=== PATIENT | female | born 1990 | race Caucasian/White ===

== ENCOUNTER 2022-05-01 15:35 | Inpatient (IN) | payer MEDICAID ==
[~2022-05-01] VITALS: Ht 177.8 cm; Wt 68.9 kg
[2022-05-01] MEDS ORDERED: MORPHINE SULFATE 4 MG/ML CPJ (NOT FOR IM USE) IV ONE ×2 (16:45→19:30)
[2022-05-01] MEDS ORDERED: ONDANSETRON HCL 4MG/2ML INJ IV ONE (16:45)
[2022-05-01 16:53] LABS: BASOPHILS % 0.2 % (0.0-2.0); EOSINOPHILS % 0.3 % (0.0-5.0); HEMATOCRIT. 36.9 % (36.0-48.0); HEMOGLOBIN. 12.8 g/dL (12.0-16.0); LYMPHOCYTES % 13.8 % (20.0-50.0); MEAN CORPUSCULAR HEMOGLOBIN 28.8 pg (28.0-32.0); MEAN CORPUSCULAR VOLUME 83.3 fL (81.0-99.0); MEAN PLATELET VOLUME 7.1 fl (7.4-10.4); MONOCYTES % 5.3 % (2.0-8.0); NEUTROPHILS % 80.4 % (40.0-76.0); PLATELET 379 x1000/uL (130-400); RED BLOOD CELL COUNT 4.43 mill/uL (4.2-5.4)
[2022-05-01 16:59] LABS: CHLORIDE 103 mEq/L (98-107); PROTHROMBIN TIME 11.1 sec (9.6-11.0)
[2022-05-01 17:04] LABS: CLARITY URINE CLOUDY (CLEAR); COLOR URINE YELLOW (YELLOW); KETONES URINE 1+ (NEGATIVE); LEUKOCYTE ESTERASE URINE TRACE (NEGATIVE); NITRITE URINE NEGATIVE (NEGATIVE); OCCULT BLOOD URINE NEGATIVE (NEGATIVE); PH URINE >=9.0 (4.5-8.0); PROTEIN URINE TRACE (NEGATIVE); UROBILINOGEN URINE 0.2 E.U./dL (0.2-1.0)
[2022-05-01 17:11] LABS: UCG SCREEN NEGATIVE
[2022-05-01] MEDS ORDERED: CEFUROXIME SODIUM 750 MG in DEXTROSE 5% WATER 50 ML IV SCH (18:45)
[2022-05-01] MEDS ORDERED: CEFOXITIN 1G in DEXTROSE 5% WATER 50ML IV NR (19:00)
[2022-05-01 20:00] VITALS: BP 116/69
[2022-05-01 23:17] VITALS: BP 116/69
[2022-05-02] MEDS ORDERED: PROPOFOL 200MG/20ML VIAL IV ONE (00:01)
[2022-05-02] MEDS ORDERED: ONDANSETRON HCL 4MG/2ML INJ ONE ×2 (00:11→00:40)
[2022-05-02] MEDS ORDERED: HYDROCODONE/ACETAMINOPHEN 5/325MG TABLET PO PRN ×2 (00:15)
[2022-05-02] MEDS ORDERED: MORPHINE SULFATE 2 MG/ML CPJ (NOT FOR IM USE) IV PRN ×2 (00:15→01:15)
[2022-05-02] MEDS ORDERED: MORPHINE SULFATE 4 MG/ML CPJ (NOT FOR IM USE) IV PRN (00:15)
[2022-05-02] MEDS ORDERED: ONDANSETRON HCL 4MG/2ML INJ IV PRN ×3 (00:15→01:15)
[2022-05-02] MEDS ORDERED: SKIN ADHESIVE 0.7 GM EA TOP ONE ×2 (00:17→01:02)
[2022-05-02] MEDS ORDERED: BUPIVACAINE HCL 0.5% (5MG/ML) 50ML ONE (00:17)
[2022-05-02] MEDS ORDERED: MIDAZOLAM HCL 2 MG/2 ML VIAL ONE (00:17)
[2022-05-02] MEDS ORDERED: NALOXONE HCL 0.4MG/ML VIAL IV PRN (00:30)
[2022-05-02] MEDS ORDERED: SUCCINYLCHOLINE CHLORIDE 200MG/10ML IV ONE (00:40)
[2022-05-02] MEDS ORDERED: FENTANYL CITRATE/PF 50MCG/ML 2ML VIAL ONE (00:40)
[2022-05-02] MEDS ORDERED: DEXAMETHASONE 4MG/ML 1ML VIAL ONE (00:40)
[2022-05-02] MEDS ORDERED: GLYCOPYRROLATE 0.2 MG/ML 2ML VIAL ONE (00:41)
[2022-05-02] MEDS ORDERED: ROCURONIUM BROMIDE 10MG/ML VIAL 5ML IV ONE (00:41)
[2022-05-02] MEDS ORDERED: NEOSTIGMINE METHYLSULFATE 1MG/ML 10 ML VIAL ONE (00:41)
[2022-05-02] MEDS ORDERED: KETOROLAC 30MG/ML VIAL ONE (00:41)
[2022-05-02] MEDS ORDERED: PHENYLEPHRINE HCL 10 MG/ML 1ML (IV VIAL) IV ONE (00:43)
[2022-05-02] MEDS ORDERED: GLYCOPYRROLATE 0.2 MG/ML 2ML VIAL IV PRN (01:00)
[2022-05-02] MEDS ORDERED: HYDROMORPHONE HCL/PF 2MG/ML CPJ IV PRN (01:00)
[2022-05-02] MEDS ORDERED: SODIUM CHLORIDE 0.9% 1,000 ML IV SCH ×2 (01:00→10:00)
[2022-05-02] MEDS ORDERED: FENTANYL CITRATE/PF 50MCG/ML 2ML VIAL IV PRN (01:00)
[2022-05-02] MEDS ORDERED: KCL 20MEQ/100ML PREMIX 100 ML IV NR (03:00)
[2022-05-02 04:00] VITALS: BP 106/61
[2022-05-02] MEDS: CEFOXITIN SODIUM 1 G in DEXTROSE 5% WATER 50 ML IV SCH ×3 (06:02→17:13)
[2022-05-02] MEDS: SODIUM CHLORIDE 0.9% INJ 3ML FLUSH IVF SCH ×3 (06:02→22:00)
[2022-05-02 08:00] VITALS: BP 96/53
[2022-05-02 08:24] LABS: CHLORIDE 109 mEq/L (98-107)
[2022-05-02] MEDS ORDERED: IOHEXOL-300 100 ML BOTTLE ONE (09:31)
[2022-05-02 10:44] LABS: HEMATOCRIT. 35.1 % (36.0-48.0); HEMOGLOBIN. 11.9 g/dL (12.0-16.0); MEAN CORPUSCULAR HEMOGLOBIN 28.9 pg (28.0-32.0); MEAN CORPUSCULAR VOLUME 85.5 fL (81.0-99.0); MEAN PLATELET VOLUME 7.1 fl (7.4-10.4); PLATELET 351 x1000/uL (130-400); RED BLOOD CELL COUNT 4.11 mill/uL (4.2-5.4); RED CELL DISTRIBUTION WIDTH 13.1 % (11.6-14.6)
[2022-05-02 12:00] VITALS: BP 106/59
[2022-05-02 12:05] LABS: PLATELET ESTIMATE NORMAL
[2022-05-02] MEDS: DEXT 5%/0.45% NACL KCL 20MEQ/L 1,000 ML IV SCH ×2 (12:45→23:00)
[2022-05-02 16:00] VITALS: BP 114/75
[2022-05-02 20:00] VITALS: BP 113/67
[2022-05-02 22:39] VITALS: BP 113/67
[2022-05-03] MEDS: CEFOXITIN SODIUM 1 G in DEXTROSE 5% WATER 50 ML IV SCH ×2
== END 2022-05-02 23:00 | disposition home or self-care (01) | DRG 234 ==
LOC: ER 15:35 → 6EST 20:50 → EDBEDREQ 20:57 → EDBEDREQTM 20:57 → ENRESERV 21:16
PROVIDERS: ADMIT Internal Medicine; ATTEND Internal Medicine
PROC: 0DTJ4ZZ Resection of Appendix, Percutaneous Endoscopic Approach (ICD-10-PCS; principal; 2022-05-01)
DX: K35.80 Unspecified acute appendicitis (principal); E87.1 Hypo-osmolality and hyponatremia; D72.829 Elevated white blood cell count, unspecified; Z90.49 Acquired absence of other specified parts of digestive tract; Z98.891 History of uterine scar from previous surgery; K57.30 Diverticulosis of large intestine without perforation or abscess without bleeding
CPT/HCPCS: 36415; 74177; 76830; 76856; 80053; 81003; 81025; 85025; 88304; 99285; J0330; J0694; J1100; J1885; J2250; J2270; J2370; J2405; J2704; J2710; J3010; J3480; J3490; J7060; Q9967